=== PATIENT | male | born 1965 | race Caucasian/White ===

== ENCOUNTER 2019-01-18 06:09 | Day surgery (SDC) | payer BC ==
[~2019-01-18] VITALS: Ht 175.3 cm; Wt 85.6 kg
[~2019-01-18 06:09] MED LIST: NO MEDS.
[2019-01-18 06:58] VITALS: Ht 175.3 cm; Wt 85.6 kg
[2019-01-18 07:24] VITALS: BP 131/81; PULSE 57; RESP 18
[2019-01-18] MEDS ORDERED: FENTAnyl 50 MCG/ML VIAL ONE (08:35)
[2019-01-18] MEDS ORDERED: MIDAZOLAM 1 MG/ML 2 ML INJ ONE ×3 (08:35)
[2019-01-18 09:24] VITALS: BP 98/59; RESP 34
[2019-01-18 09:26] VITALS: BP 126/84; RESP 20
== END 2019-01-18 12:24 | disposition home or self-care (01) ==
LOC: GIL 06:09
PROVIDERS: ATTEND Internal Medicine Gastroenterology
DX: Z12.11 Encounter for screening for malignant neoplasm of colon (principal); D12.8 Benign neoplasm of rectum; K64.4 Residual hemorrhoidal skin tags
CPT/HCPCS: 45380; 88305; J2250; J3010; Z7610